=== PATIENT | male | born 1950 | race Caucasian/White ===

== ENCOUNTER → 2020-10-30 | Outpatient (CLI) | payer MEDICARE | LOC: HEART 5 11:55 | DX: J30.9 Allergic rhinitis, unspecified (principal); F41.9 Anxiety disorder, unspecified; M19.90 Unspecified osteoarthritis, unspecified site; J44.9 Chronic obstructive pulmonary disease, unspecified | CPT/HCPCS: 94060; 94729 ==

== ENCOUNTER 2022-01-31 08:50 | Emergency (ER) | payer MEDICARE ==
[2022-01-31 09:53] LABS: HEMOGLOBIN 15.4 gm/dl (14.0-17.5); RED BLOOD COUNT 4.98 M/UL (4.20-5.50); WHITE BLOOD COUNT 5.8 K/UL (4.5-11.0)
[2022-01-31 10:16] LABS: BUN/CREATININE RATIO 24 (0-10)
[2022-01-31] MEDS ORDERED: CYCLOBENZAPRINE10 MG PO (14:59)
== END 2022-01-31 16:03 | disposition home or self-care (01) ==
LOC: ER1 08:50
PROVIDERS: Physician Assistant
DX: M43.16 Spondylolisthesis, lumbar region (principal); M54.16 Radiculopathy, lumbar region; M48.061 Spinal stenosis, lumbar region without neurogenic claudication; J44.9 Chronic obstructive pulmonary disease, unspecified; F17.210 Nicotine dependence, cigarettes, uncomplicated; Z20.822 Contact with and (suspected) exposure to COVID-19
CPT/HCPCS: 71045; 72131; 73502; 75635; 80053; 81001; 82550; 82553; 84484; 85025; 87086; 93005; 94664; 99284; Q9967; U0002